=== PATIENT | female | born 1965 | race Hispanic/Latino ===

== ENCOUNTER 2021-07-13 12:51 | Emergency (ER) | payer BC ==
[~2021-07-13] VITALS: Ht 165.1 cm; Wt 108.9 kg
[~2021-07-13 12:51] MED LIST: LOSARTAN POTASS25 MG PO; VASOTEC10 MG PO; [UNRECOGNIZED DRUG - OTHER]
[2021-07-13] MEDS ORDERED: METHOCARBAMOL750 MG PO (13:09)
[2021-07-13] MEDS ORDERED: IBUPROFEN600 MG PO (13:09)
[2021-07-13] MEDS ORDERED: PREDNISONE50 MG PO (13:09)
[2021-07-13] MEDS ORDERED: KETOROLAC TROMETHAMINE 30 MG/ML VIAL IV STA (13:18)
[2021-07-13 13:30] VITALS: BP 139/72
[2021-07-13] MEDS ORDERED: KETOROLAC TROMETHAMINE 60 MG/2 ML VIAL ONE (13:31)
== END 2021-07-13 15:00 | disposition home or self-care (01) ==
LOC: ER 13:00
DX: M54.41 Lumbago with sciatica, right side (principal); I10 Essential (primary) hypertension
CPT/HCPCS: 99283; J1885

== ENCOUNTER → 2021-08-21 | Outpatient (CLI) | payer BC ==
[~2021-08-21] MED LIST changes: +IBUPROFEN600 MG PO; +METHOCARBAMOL750 MG PO; +PREDNISONE50 MG PO
== END ==
LOC: NM 08:53
PROVIDERS: ATTEND Family Medicine
DX: E04.1 Nontoxic single thyroid nodule (principal)
CPT/HCPCS: 78014; A9516